=== PATIENT | male | born 1990 | race Asian ===

== ENCOUNTER 2019-12-27 21:26 | Emergency (ER) | payer OTHER ==
[~2019-12-27] VITALS: Ht 170.2 cm; Wt 59.0 kg
[2019-12-27 22:06] VITALS: BP 126/72; TEMP 98.6
== END 2019-12-27 22:25 | disposition home or self-care (01) ==
LOC: ED 21:26
DX: Z20.2 Contact with and (suspected) exposure to infections with a predominantly sexual mode of transmission (principal)
CPT/HCPCS: 87490; 87590; 96372; 99282; 99283; J0696